=== PATIENT | male | born 1965 | race Caucasian/White ===

== ENCOUNTER → 2023-12-07 08:04 | Outpatient (REF) | payer OTHER, MEDICAID, SELFPAY | LOC: DHVS 08:04 | PROVIDERS: ATTENDING PHYSICIAN Surgery Vascular Surgery | DX: I70.0 Atherosclerosis of aorta (principal); I70.8 Atherosclerosis of other arteries | CPT/HCPCS: 93922; 93925; 93978 ==

== ENCOUNTER → 2024-12-19 07:52 | Outpatient (REF) | payer OTHER, SELFPAY | LOC: DHVS 07:52 | PROVIDERS: ATTENDING PHYSICIAN Surgery Vascular Surgery; FAMILY PHYSICIAN Emergency Medicine | DX: I73.9 Peripheral vascular disease, unspecified (principal) | CPT/HCPCS: 93922; 93925; 93978 ==